=== PATIENT | male | born 1995 | race Hispanic/Latino ===

== ENCOUNTER → 2024-03-20 | Outpatient (CLI) | payer OTHER ==
--- NOTE | 2024-03-20 09:52 | HMCIMG ---
US SOFT TISSUE GROIN REASON: unilateral inguinal hernia w/o obstruction COMPARISON: None TECHNIQUE: Ultrasound was performed in the left groin for hernia evaluation. FINDINGS: There is a large left inguinal hernia. This contains only mesenteric fat, there are no visible bowel loops. Hernia measures up to 20 cm in length. IMPRESSION: 1. Large left inguinal hernia containing only mesenteric fat.
== END | disposition home or self-care (01) ==
LOC: EEVIPCON 07:22 → RAH 07:22
PROVIDERS: ATTEND Family Medicine
DX: K40.91 Unilateral inguinal hernia, without obstruction or gangrene, recurrent (principal)
CPT/HCPCS: 76882